=== PATIENT | female | born 1985 | race Caucasian/White ===

== ENCOUNTER 2019-06-09 08:32 | Inpatient (IN) | payer OTHER ==
[~2019-06-09] VITALS: Ht 165.1 cm; Wt 88.5 kg
[2019-06-09 08:35] VITALS: BP 167/88
[2019-06-09] MEDS ORDERED: NACL 0.9% 1,000 ML IV ONE ×2 (09:05→11:30)
[2019-06-09] MEDS ORDERED: KETOROLAC 30 MG/ML VIAL IVP ONE (09:25)
[2019-06-09] MEDS ORDERED: PROMETHAZINE 25 MG/ML VIAL IVP ONE (09:25)
[2019-06-09 10:08] LABS: HEMATOCRIT 29.6 % (36-48); HEMOGLOBIN 9.8 g/dL (12.0-16.0); MEAN CORPUSCULAR HEMOGLOBIN 30 pg (27-31); MEAN CORPUSCULAR HGB CONC 33 g/dL (33-37); PLATELET COUNT (AUTO) 319 K/uL (140-450); RED BLOOD CELL COUNT(AUTO) 3.32 MIL/uL (4.20-5.40); WHITE BLOOD COUNT (AUTO) 8.3 K/uL (4.8-10.8)
[2019-06-09 10:22] LABS: APPEARANCE,URINE CLEAR (CLEAR); BILIRUBIN,URINE 3+ (NEGATIVE); BLOOD, URINE 2+ (NEGATIVE); COLOR,URINE YELLOW (YELLOW); LEUKOCYTE ESTERASE ,URINE NEGATIVE (NEGATIVE); NITRITE, URINE NEGATIVE (NEGATIVE); UGLUCOSE TRACE (NEGATIVE)
[2019-06-09 10:25] LABS: ALBUMIN 2.7 g/dL (3.4-5.0); ANION GAP 15.3 (8-16); CARBON DIOXIDE 27.4 mmol/L (21-32); CREATININE 0.7 mg/dL (0.6-1.3); TOTAL BILIRUBIN 2.5 mg/dL (0.0-1.0)
[2019-06-09 10:27] LABS: POTASSIUM 2.7 mmol/L (3.5-5.1)
[2019-06-09 10:36] LABS: LYMPHOCYTES % (MANUAL) 12 % (20-46); MONOCYTES % (MANUAL) 2 % (5-12)
[2019-06-09 11:08] LABS: COARSE GRANULAR CASTS,URINE 0-10 /LPF (None Seen)
[2019-06-09] MEDS ORDERED: POTASSIUM CHLORIDE 20% 40 MEQ/15 ML UDC PO ONE (11:30)
[2019-06-09] MEDS ORDERED: KCL 20 MEQ/WATER INJ PREMIX 200 ML IV ONE (11:30)
[2019-06-09] MEDS ORDERED: diphenhydrAMINE 50 MG/ML VIAL IVP ONE (11:30)
[2019-06-09] MEDS ORDERED: METOCLOPRAMIDE 10 MG/2 ML INJ VIAL IVP ONE (11:30)
[2019-06-09] MEDS ORDERED: MORPHINE SULFATE 4 MG/ML SYR IVP ONE (12:50)
[2019-06-09] MEDS ORDERED: cefTRIAXone 1,000 MG VIAL ONE (13:57)
[2019-06-09] MEDS ORDERED: PROMETHAZINE 25 MG TAB PO PRN (14:55)
[2019-06-09 15:47] LABS: BARBITURATE, URINE NEG. ng/ml (NEG <=200); BENZODIAZEPINE, URINE NEG. ng/mL (NEG <=200); CANNABINOID, URINE POS. ng/mL (NEG <=50); COCAINE, URINE NEG. ng/mL (NEG <=300); OPIATE, URINE POS. ng/mL (NEG <=2000); PHENCYCLIDINE SCREEN,URINE NEG. ng/mL (NEG <=25)
[2019-06-09] MEDS ORDERED: ESCI20TA47 PO (15:58)
[2019-06-09] MEDS ORDERED: diphenhydrAMINE 50 MG/ML VIAL IVP PRN (16:15)
[2019-06-09] MEDS ORDERED: MAG SULF 2000 MG/WATER PREMIX 50 ML IV PRN (16:15)
[2019-06-09] MEDS ORDERED: MAGNESIUM OXIDE 400 MG TAB PO PRN (16:15)
[2019-06-09] MEDS ORDERED: ZOLPIDEM 5 MG TAB PO PRN (16:15)
[2019-06-09] MEDS ORDERED: guaiFENesin DM 200/20 MG-10 ML 10 ML UDC PO PRN (16:15)
[2019-06-09] MEDS: HYDROmorphone 1 MG/ML AMP IVP PRN ×2 (16:48→21:04)
[2019-06-09] MEDS: ONDANSETRON 4 MG/2 ML VIAL IVP PRN (19:49)
[2019-06-09] MEDS: IPRATROPIUM 0.02% 0.5 MG/2.5 ML NEBU INH PRN (19:58)
[2019-06-09] MEDS: ALBUTEROL 0.083% 2.5 MG/3 ML NEBU INH PRN (19:58)
[2019-06-10] VITALS: BP 108/69
[2019-06-10] MEDS: METOCLOPRAMIDE 10 MG/2 ML INJ VIAL IVP PRN ×3 (00:15→16:03)
[2019-06-10] MEDS: ALBUTEROL 0.083% 2.5 MG/3 ML NEBU INH PRN ×2 (00:47→19:39)
[2019-06-10] MEDS: IPRATROPIUM 0.02% 0.5 MG/2.5 ML NEBU INH PRN ×2 (00:47→19:38)
[2019-06-10] MEDS: HYDROmorphone 1 MG/ML AMP IVP PRN ×6 (01:13→20:55)
[2019-06-10] MEDS: ONDANSETRON 4 MG/2 ML VIAL IVP PRN ×3 (04:42→20:18)
[2019-06-10] MEDS ORDERED: POTASSIUM CHLORIDE 10 MEQ TABER PO PRN (07:00)
[2019-06-10 07:45] LABS: ALBUMIN 2.3 g/dL (3.4-5.0); ANION GAP 12.8 (8-16); CARBON DIOXIDE 28.9 mmol/L (21-32); CREATININE 0.7 mg/dL (0.6-1.3); POTASSIUM 3.7 mmol/L (3.5-5.1); TOTAL BILIRUBIN 2.1 mg/dL (0.0-1.0)
[2019-06-10 07:47] LABS: BASOPHILS % (AUTO) 0.2 % (0.0-2.0); EOSINOPHILS # (AUTO) 0.1 K/uL (0-0.4); EOSINOPHILS % (AUTO) 1.1 % (0.0-4.0); HEMATOCRIT 25.4 % (36-48); HEMOGLOBIN 8.3 g/dL (12.0-16.0); LYMPHOCYTES # (AUTO) 0.6 K/uL (2.5-16.5); MEAN CORPUSCULAR HEMOGLOBIN 29 pg (27-31); MEAN CORPUSCULAR HGB CONC 33 g/dL (33-37); MEAN CORPUSCULAR VOLUME 89.9 fL (80-94); MONOCYTES # (AUTO) 0.2 K/uL (0.8-1.0); MONOCYTES % (AUTO) 2.3 % (1.7-9.3); NEUTROPHILS # (AUTO) 6.9 K/uL (1.8-7.7); NEUTROPHILS % (AUTO) 88.4 % (42.2-75.2); PLATELET COUNT (AUTO) 316 K/uL (140-450); RED BLOOD CELL COUNT(AUTO) 2.83 MIL/uL (4.20-5.40); WHITE BLOOD COUNT (AUTO) 7.8 K/uL (4.8-10.8)
[2019-06-10 08:00] VITALS: BP 135/73
[2019-06-10] MEDS ORDERED: POTASSIUM CHLORIDE 40 MEQ, LIDOCAINE 1% 25 MG in NACL 0.9% 250 ML IV PRN (08:00)
[2019-06-10] MEDS ORDERED: THIAMINE 100 MG TAB PO SCH (11:16)
[2019-06-10 16:00] VITALS: BP 147/80
[2019-06-10] MEDS: LORazepam 2 MG/ML VIAL IVP PRN (16:54)
[2019-06-10] MEDS ORDERED: ACETAMINOPHEN 325 MG TAB PO PRN (18:40)
[2019-06-10] MEDS ORDERED: ACETAMINOPHEN 325 MG TAB ONE (19:04)
[2019-06-11] VITALS: BP 148/83
[2019-06-11] MEDS: HYDROmorphone 1 MG/ML AMP IVP PRN ×6 (01:06→23:39)
[2019-06-11] MEDS: LORazepam 2 MG/ML VIAL IVP PRN ×2 (05:49→21:11)
[2019-06-11 08:00] VITALS: BP 131/69
[2019-06-11] MEDS: THIAMINE 100 MG TAB PO SCH (09:37)
[2019-06-11] MEDS: ONDANSETRON 4 MG/2 ML VIAL IVP PRN ×2 (12:12→19:53)
[2019-06-11] MEDS: ALBUTEROL 0.083% 2.5 MG/3 ML NEBU INH PRN (12:18)
[2019-06-11] MEDS: IPRATROPIUM 0.02% 0.5 MG/2.5 ML NEBU INH PRN (12:19)
[2019-06-11] MEDS: METOCLOPRAMIDE 10 MG/2 ML INJ VIAL IVP PRN ×2 (15:48→23:31)
[2019-06-11 16:00] VITALS: BP 136/76
[2019-06-12] VITALS: BP 126/62
[2019-06-12] MEDS: LORazepam 2 MG/ML VIAL IVP PRN (03:09)
[2019-06-12] MEDS: ONDANSETRON 4 MG/2 ML VIAL IVP PRN (03:10)
[2019-06-12] MEDS: HYDROmorphone 1 MG/ML AMP IVP PRN ×3 (05:11→15:18)
[2019-06-12 06:55] LABS: BASOPHILS % (AUTO) 0.3 % (0.0-2.0); EOSINOPHILS % (AUTO) 0.5 % (0.0-4.0); HEMATOCRIT 26.2 % (36-48); HEMOGLOBIN 8.8 g/dL (12.0-16.0); LYMPHOCYTES # (AUTO) 0.8 K/uL (2.5-16.5); LYMPHOCYTES % (AUTO) 9.4 % (20.5-51.1); MEAN CORPUSCULAR HEMOGLOBIN 29 pg (27-31); MEAN CORPUSCULAR HGB CONC 33 g/dL (33-37); MEAN CORPUSCULAR VOLUME 87.2 fL (80-94); MONOCYTES # (AUTO) 0.2 K/uL (0.8-1.0); MONOCYTES % (AUTO) 2.8 % (1.7-9.3); NEUTROPHILS # (AUTO) 7.4 K/uL (1.8-7.7); PLATELET COUNT (AUTO) 372 K/uL (140-450); RED BLOOD CELL COUNT(AUTO) 3.01 MIL/uL (4.20-5.40); RED CELL DISTRIBUTION WIDTH 16.7 % (11.6-13.7); WHITE BLOOD COUNT (AUTO) 8.5 K/uL (4.8-10.8)
[2019-06-12 07:58] LABS: ANION GAP 16.8 (8-16); CARBON DIOXIDE 28.3 mmol/L (21-32); CREATININE 0.8 mg/dL (0.6-1.3); POTASSIUM 3.1 mmol/L (3.5-5.1)
[2019-06-12 07:59] LABS: ALBUMIN 2.1 g/dL (3.4-5.0); TOTAL BILIRUBIN 2.1 mg/dL (0.0-1.0)
[2019-06-12 08:00] VITALS: BP 127/77
[2019-06-12] MEDS: THIAMINE 100 MG TAB PO SCH (08:38)
[2019-06-12] MEDS ORDERED: POTASSIUM CHLORIDE 10 MEQ TABER PO SCH (12:30)
[2019-06-12] MEDS ORDERED: LEVO750T2 PO (12:51)
[2019-06-12 16:00] VITALS: BP 129/72
[2019-06-12] MEDS ORDERED: HYDR-5122 PO ×2 (17:30→17:32)
== END 2019-06-12 18:15 | disposition home or self-care (01) | DRG 280 ==
LOC: MED 08:32 → MMU 15:00
PROVIDERS: ADMIT Internal Medicine Pulmonary Disease; ATTEND Internal Medicine Pulmonary Disease
DX: K70.9 Alcoholic liver disease, unspecified (principal); J69.0 Pneumonitis due to inhalation of food and vomit; E87.6 Hypokalemia; F12.90 Cannabis use, unspecified, uncomplicated; R09.02 Hypoxemia; T40.7X1A Poisoning by cannabis (derivatives), accidental (unintentional), initial encounter; Z90.49 Acquired absence of other specified parts of digestive tract; Y92.89 Other specified places as the place of occurrence of the external cause; E44.0 Moderate protein-calorie malnutrition
CPT/HCPCS: 36415; 71045; 71275; 76705; 80053; 80305; 81001; 81025; 82150; 83690; 84484; 85025; 85379; 87040; 87070; 87081; 87086; 87205; 94640; 96361; 96365; 96375; 99285; J0696; J1170; J1200; J1885; J2060; J2270; J2405; J2550; J2765; J3480; J7030; J7060; J7613; J7644; Q0092; Q0169; Q9967

== ENCOUNTER 2019-06-14 12:07 | Emergency (ER) | payer OTHER ==
[~2019-06-14] VITALS: Ht 165.1 cm; Wt 85.7 kg
[~2019-06-14 12:07] MED LIST: ESCI20TA47 PO; HYDR-5122 PO; LEVO750T2 PO
[2019-06-14 12:24] VITALS: BP 126/77
--- NOTE | 2019-06-14 14:21 | NUR ---
PT AMBULATED TO BED
--- NOTE | 2019-06-14 14:53 | NUR ---
PT C/O EXCESSIVE NAUSEA & VOMITING X8 DAYS. PT WAS SEEN WEDNESDAY & ADMITTED FOR PNEUMONIA. C/O BURNING MID ABD PAIN . STATES SHE WAS SUPPOSED TO HAVE BIOPSY OF UTERUS DENIED BIOPSY PT STATES SHE WAS AFRAID TO ASPIRATE ON VOMIT DURING PROCEDURE. PT STATES SHE HAS BEEN ON HER PERIOD SINCE 01/13/19, CONSTANT. PT SITTING IN BED, CALM, VSS. MOTHER AT BEDSIDE. MEDHX: HEART MURMUR, GALL BLADDER REMOVAL ALLERGIES: DENIES
[2019-06-14] MEDS ORDERED: NACL 0.9% 1,000 ML IV ONE (16:15)
[2019-06-14 16:35] LABS: BASOPHILS % (AUTO) 0.7 % (0.0-2.0); EOSINOPHILS # (AUTO) 0.1 K/uL (0-0.4); EOSINOPHILS % (AUTO) 1.7 % (0.0-4.0); HEMATOCRIT 29.5 % (36-48); HEMOGLOBIN 9.8 g/dL (12.0-16.0); LYMPHOCYTES # (AUTO) 0.8 K/uL (2.5-16.5); LYMPHOCYTES % (AUTO) 18.1 % (20.5-51.1); MEAN CORPUSCULAR HEMOGLOBIN 29 pg (27-31); MEAN CORPUSCULAR HGB CONC 33 g/dL (33-37); MEAN CORPUSCULAR VOLUME 87.3 fL (80-94); MONOCYTES # (AUTO) 0.1 K/uL (0.8-1.0); MONOCYTES % (AUTO) 2.7 % (1.7-9.3); NEUTROPHILS # (AUTO) 3.5 K/uL (1.8-7.7); NEUTROPHILS % (AUTO) 76.8 % (42.2-75.2); PLATELET COUNT (AUTO) 524 K/uL (140-450); RED BLOOD CELL COUNT(AUTO) 3.39 MIL/uL (4.20-5.40); RED CELL DISTRIBUTION WIDTH 17.7 % (11.6-13.7); WHITE BLOOD COUNT (AUTO) 4.5 K/uL (4.8-10.8)
--- NOTE | 2019-06-14 16:38 | NUR ---
PT SITTING IN BED, VSS. PT C/O PAIN 05/13. MOTHER AT BEDSIDE
[2019-06-14 16:46] LABS: APPEARANCE,URINE CLEAR (CLEAR); BILIRUBIN,URINE 2+ (NEGATIVE); BLOOD, URINE 3+ (NEGATIVE); LEUKOCYTE ESTERASE ,URINE NEGATIVE (NEGATIVE); NITRITE, URINE NEGATIVE (NEGATIVE); UGLUCOSE TRACE (NEGATIVE)
[2019-06-14 17:03] LABS: COLOR,URINE AMBER (YELLOW)
[2019-06-14 17:07] LABS: RBC,URINE 0-5 /HPF (0-5); WBC,URINE 0-5 /HPF (0-5)
[2019-06-14 17:54] LABS: ANION GAP 18.1 (8-16); CARBON DIOXIDE 28.5 mmol/L (21-32); CREATININE 0.7 mg/dL (0.6-1.3); POTASSIUM 3.6 mmol/L (3.5-5.1); TOTAL BILIRUBIN 0.9 mg/dL (0.0-1.0)
[2019-06-14 17:55] LABS: ALBUMIN 2.2 g/dL (3.4-5.0)
--- NOTE | 2019-06-14 18:24 | NUR ---
PT IN BED WITH MOTHER AT BEDSIDE. C/O PAIN. MD NOTIFIED OF PAIN.
[2019-06-14] MEDS ORDERED: KETOROLAC 30 MG/ML VIAL IVP ONE (18:25)
[2019-06-14] MEDS ORDERED: DICYCLOMINE HCL LIQUID 10 MG/5 ML UDC PO ONE (18:25)
--- NOTE | 2019-06-14 19:56 | NUR ---
Patient discharged with v/s stable. Written and verbal after care instructions given and explained. Patient alert, oriented and verbalized understanding of instructions. Ambulatory with steady gait. All questions addressed prior to discharge. ID band removed. Patient advised to follow up with PMD. Rx of PHENERGAN AND BENTYL WAS given. Patient educated on indication of medication including possible reaction and side effects. Opportunity to ask questions provided and answered.
[2019-06-14 20:00] VITALS: BP 137/77
--- NOTE | 2019-06-15 08:47 | NUR ---
Late entry. Confirmed with RN that 0.9 NS IV 1000ml completed at 1730
== END 2019-06-14 19:56 | disposition home or self-care (01) ==
LOC: MED 12:07
DX: K85.90 Acute pancreatitis without necrosis or infection, unspecified (principal); R11.10 Vomiting, unspecified; Z79.891 Long term (current) use of opiate analgesic; Z79.899 Other long term (current) drug therapy; Z79.2 Long term (current) use of antibiotics
CPT/HCPCS: 36415; 80053; 81001; 81025; 83690; 85025; 96361; 96374; 99283; J1885; J7030

== ENCOUNTER 2019-07-25 08:57 | Emergency (ER) | payer OTHER ==
[~2019-07-25] VITALS: Ht 165.1 cm; Wt 85.4 kg
[2019-07-25 08:59] VITALS: BP 137/77
--- NOTE | 2019-07-25 09:09 | NUR ---
PATIENT AMBULATED TO BED 3.
[2019-07-25] MEDS ORDERED: NACL 0.9% 1,000 ML IV SCH (09:23)
--- NOTE | 2019-07-25 09:23 | NUR ---
C/O LUQ ABDOMINAL PAIN RADIATING TO LEFT UPPER BACK ,N/V X 3 DAYS. MED HX: 2 C SECTIONS, GALL BLADDER REMOVAL, HEART MURMUR, PANCREATITIS, ALCOHOLIC LIVER DISEASE SKIN IS PINK/WARM/DRY; AAOX4 WITH EVEN AND STEADY GAIT; LUNGS CLEAR BL; HR EVEN AND REGULAR; PT DENIES ANY FEVER, CP, SOB, OR COUGH AT THIS TIME; PATIENT STATES PAIN OF 9/10 AT THIS TIME; VSS; PATIENT POSITIONED FOR COMFORT; HOB ELEVATED; BEDRAILS UP X2; BED DOWN. ER MD MADE AWARE OF PT STATUS.
[2019-07-25] MEDS ORDERED: FAMOTIDINE 20 MG/2 ML VIAL IVP ONE (09:25)
[2019-07-25] MEDS ORDERED: KETOROLAC 15 MG/ML VIAL IVP ONE (09:25)
[2019-07-25] MEDS ORDERED: ONDANSETRON 4 MG/2 ML VIAL IVP ONE (09:25)
[2019-07-25] MEDS ORDERED: METOCLOPRAMIDE 10 MG/2 ML INJ VIAL IVP ONE (09:40)
[2019-07-25 09:52] LABS: BASOPHILS % (AUTO) 0.4 % (0.0-2.0); EOSINOPHILS % (AUTO) 0.2 % (0.0-4.0); HEMATOCRIT 33.8 % (36-48); HEMOGLOBIN 10.9 g/dL (12.0-16.0); LYMPHOCYTES # (AUTO) 1.1 K/uL (2.5-16.5); MEAN CORPUSCULAR HEMOGLOBIN 27 pg (27-31); MEAN CORPUSCULAR HGB CONC 32 g/dL (33-37); MEAN CORPUSCULAR VOLUME 84.1 fL (80-94); MONOCYTES # (AUTO) 0.2 K/uL (0.8-1.0); MONOCYTES % (AUTO) 3.2 % (1.7-9.3); NEUTROPHILS # (AUTO) 6.2 K/uL (1.8-7.7); NEUTROPHILS % (AUTO) 81.2 % (42.2-75.2); PLATELET COUNT (AUTO) 351 K/uL (140-450); RED BLOOD CELL COUNT(AUTO) 4.02 MIL/uL (4.20-5.40); RED CELL DISTRIBUTION WIDTH 16.7 % (11.6-13.7); WHITE BLOOD COUNT (AUTO) 7.7 K/uL (4.8-10.8)
--- NOTE | 2019-07-25 09:53 | NUR ---
PT STATED NO MORE NAUSEA . PAIN RELIEVED BUT BACK STILL HURTS, WILL CONTINUE TO CHECK PT.
[2019-07-25 10:08] LABS: CREATININE 0.8 mg/dL (0.6-1.3); POTASSIUM 3.4 mmol/L (3.5-5.1); TOTAL BILIRUBIN 1.2 mg/dL (0.0-1.0)
[2019-07-25 10:13] LABS: CARBON DIOXIDE 23.6 mmol/L (21-32)
[2019-07-25 10:14] LABS: ANION GAP 18.8 (8-16)
[2019-07-25 11:02] VITALS: BP 128/75
--- NOTE | 2019-07-25 11:03 | NUR ---
Patient discharged with v/s stable. Written and verbal after care instructions given and explained. Patient alert, oriented and verbalized understanding of instructions. Ambulatory with steady gait. All questions addressed prior to discharge. ID band removed. Patient advised to follow up with PMD. Rx of reglan and omeprazole given. Patient educated on indication of medication including possible reaction and side effects. Opportunity to ask questions provided and answered.
== END 2019-07-25 11:03 | disposition home or self-care (01) ==
LOC: MED 08:57
DX: K29.70 Gastritis, unspecified, without bleeding (principal); R11.2 Nausea with vomiting, unspecified; Z90.49 Acquired absence of other specified parts of digestive tract; Z98.890 Other specified postprocedural states; Z79.899 Other long term (current) drug therapy; Z88.8 Allergy status to other drugs, medicaments and biological substances
CPT/HCPCS: 36415; 80053; 81002; 81025; 83690; 85025; 96361; 96374; 96375; 99283; J1885; J2765; J3490; J7030; J2405

== ENCOUNTER 2020-05-26 09:47 | Observation (INO) | payer OTHER ==
[~2020-05-26] VITALS: Ht 167.6 cm; Wt 90.7 kg
[2020-05-26 09:54] VITALS: BP 150/101
--- NOTE | 2020-05-26 10:30 | NUR ---
heavy menses x february--passing large clots as well which cause labor type pain c/o fatigue, dizziness, sob, generalized weakness 15 sanitary napkin/day +
[2020-05-26 10:42] LABS: BASOPHILS % (AUTO) 0.4 % (0.0-2.0); EOSINOPHILS % (AUTO) 0.3 % (0.0-4.0); HEMATOCRIT 20.9 % (36-48); LYMPHOCYTES # (AUTO) 1.4 K/uL (2.5-16.5); MEAN CORPUSCULAR HEMOGLOBIN 26 pg (27-31); MEAN CORPUSCULAR HGB CONC 32 g/dL (33-37); MONOCYTES # (AUTO) 0.4 K/uL (0.8-1.0); MONOCYTES % (AUTO) 5.9 % (1.7-9.3); NEUTROPHILS # (AUTO) 5.3 K/uL (1.8-7.7); NEUTROPHILS % (AUTO) 73.4 % (42.2-75.2); PLATELET COUNT (AUTO) 276 K/uL (140-450); RED BLOOD CELL COUNT(AUTO) 2.58 MIL/uL (4.20-5.40); RED CELL DISTRIBUTION WIDTH 15.6 % (11.6-13.7); WHITE BLOOD COUNT (AUTO) 7.2 K/uL (4.8-10.8)
[2020-05-26 10:44] LABS: BILIRUBIN,URINE 2+ (NEGATIVE); BLOOD, URINE 2+ (NEGATIVE); COLOR,URINE YELLOW (YELLOW); LEUKOCYTE ESTERASE ,URINE NEGATIVE (NEGATIVE); NITRITE, URINE NEGATIVE (NEGATIVE); UGLUCOSE NEGATIVE (NEGATIVE)
[2020-05-26 11:00] LABS: PROTHROMBIN TIME 10.4 secs (10.8-13.4)
[2020-05-26 11:03] LABS: ALBUMIN 3.9 g/dL (3.4-5.0); ANION GAP 20.3 (8-16); CARBON DIOXIDE 22.5 mmol/L (21-32); HEMOGLOBIN 6.6 g/dL (12.0-16.0); TOTAL BILIRUBIN 0.8 mg/dL (0.0-1.0)
[2020-05-26 11:09] LABS: POTASSIUM 2.8 mmol/L (3.5-5.1)
[2020-05-26 11:10] LABS: APPEARANCE,URINE SLIGHTLY HAZY (CLEAR)
[2020-05-26 11:12] LABS: WBC,URINE 0-5 /HPF (0-5)
[2020-05-26] MEDS ORDERED: LORazepam 2 MG/ML VIAL IVP ONE (11:20)
[2020-05-26] MEDS ORDERED: POTASSIUM CHLORIDE 10 MEQ TABER PO ONE (11:35)
[2020-05-26] MEDS: NACL 0.9% 1,000 ML IV SCH ×2 (11:51→21:32)
[2020-05-26] MEDS ORDERED: ONDANSETRON 4 MG/2 ML VIAL IVP PRN (11:55)
--- NOTE | 2020-05-26 12:00 | NUR ---
RECEIVED REPORT FROM ER NURSE. ADMITTED 35 Y/O FEMALE WITH CC OF VAGINAL BLEEDING AND ADMITTING DX OF ANEMIA. PT IS AOX4, VERBAL, AMBULATORY, CONTINENT, NO C/O PAIN, NO SOB, ON ROOM AIR, V/S WNL. IV SITE ON LAC 20G RUNNING NS AT 80CC/HR. SKIN IS INTACT. CALL LIGHT WITHIN REACH. SAFETY PRECAUTIONS IN PLACE. WILL CONTINUE TO MONITOR
--- NOTE | 2020-05-26 12:28 | NUR ---
Pt transferred to Med/Surg via gurney to room 104-b report given to Galen HERNANDEZ
[2020-05-26] MEDS ORDERED: LORazepam 2 MG/ML VIAL IVP SCH (15:00)
--- NOTE | 2020-05-26 15:50 | NUR ---
BLOOD TRANSFUSION 1 BAG PRBC STARTED. NO ADVERSE REACTIONS NOTED. V/S MONITORING PROTOCOL STARTED
[2020-05-26 16:02] VITALS: BP 129/74
--- NOTE | 2020-05-26 17:25 | NUR ---
FINISHED BLOOD TRANSFUSION. NO ADVERSE REACTIONS NOTED.
--- NOTE | 2020-05-26 18:40 | NUR ---
STARTED 2ND BAG OF PRBC. NO ADVERSE REACTIONS NOTED. V/S MONITORING PROTOCOL STARTED
--- NOTE | 2020-05-26 19:30 | NUR ---
RECEIVED BEDSIDE REPORT FROM DAY SHIFT NURSE. PATIENT IS AWAKE, ALERT, AND COOPERATIVE. RESPIRATION EVEN UNLABORED ON ROOM AIR. NO DISTRESS NOTED. SKIN IS WARM AND DRY. IV PATENT AND INTACT. PATIENT IS RECEIVING BLOOD TRANSFUSION AT THIS MOMENT. NO BLOOD TRANSFUSION REACTION NOTED. PLAN OF CARE WAS DISCUSSED. ALL SAFETY MEASURES IN PLACE. BED IS AT LOW POSITION. CALL LIGHT WITHIN REACH. WILL CONTINUE TO MONITOR.
[2020-05-26 20:00] VITALS: BP 115/66
--- NOTE | 2020-05-26 20:40 | NUR ---
BLOOD TRANSFUSION DONE. NO ADVERSE REACTION NOTED. VITALS WERE STABLE. WILL CONTINUE TO MONITOR.
[2020-05-26] MEDS: MEGESTROL 40 MG TAB PO SCH (21:06)
--- NOTE | 2020-05-26 21:06 | NUR ---
ALL SCHEDULED MEDS WERE GIVEN PER ORDER. NO ASE NOTED. WILL CONTINUE TO MONITOR.
[2020-05-26] MEDS ORDERED: traZODone 50 MG TAB PO PRN (21:25)
--- NOTE | 2020-05-26 22:06 | NUR ---
PATIENT COMPLAINED OF UNABLE TO FALL ASLEEP. PRN SLEEPING AID GIVEN PER ORDER. WILL CONTINUE TO MONITOR.
[2020-05-27] VITALS: BP 120/51
--- NOTE | 2020-05-27 02:46 | NUR ---
CHECKED PATIENT. PATIENT SLEEPING RESPIRATION EVEN UNLABORED ON ROOM AIR. NO DISTRESS NOTED. WILL CONTINUE TO MONITOR.
--- NOTE | 2020-05-27 03:33 | NUR ---
ENDORSED PATIENT TO JOSEMANUEL FOR CONTINUITY OF CARE. PATIENT IN STABLE CONDITION
--- NOTE | 2020-05-27 03:35 | NUR ---
RECEIVED PT SLEEPING, EASILY AROUSABLE, DENIES ANY PAIN, PT STATED ONLY SCANTY BLEEDING/SPOTTING AT THIS TIME, IV SITE ON THE LT AC POSITIONAL, INSTRUCTED TO KEEP LEFT ARM STRAIGHT, PILLOW PROVIDED UNDERNEATH THE LEFT ARM TO KEEP ARM STRAIGHT, SAFETY MEASURES IN PLACE, CALL LIGHT WITHIN REACH.
[2020-05-27 04:15] VITALS: BP 123/58
--- NOTE | 2020-05-27 05:10 | NUR ---
PT AMBULATED TO BR WITH STEADY GAIT, VOIDED FREELY, MONITORED CLOSELY.
--- NOTE | 2020-05-27 06:10 | NUR ---
SEEN PT SLEEPING, OPEN EYES TO NAME, NO DISTRESS NOTED, IVF INFUSING WELL, MONITORED CLOSELY.
[2020-05-27 07:06] LABS: BASOPHILS % (AUTO) 0.6 % (0.0-2.0); EOSINOPHILS # (AUTO) 0.1 K/uL (0-0.4); EOSINOPHILS % (AUTO) 1.6 % (0.0-4.0); HEMATOCRIT 24.2 % (36-48); LYMPHOCYTES # (AUTO) 1.6 K/uL (2.5-16.5); LYMPHOCYTES % (AUTO) 29.7 % (20.5-51.1); MEAN CORPUSCULAR HEMOGLOBIN 27 pg (27-31); MEAN CORPUSCULAR HGB CONC 33 g/dL (33-37); MEAN CORPUSCULAR VOLUME 82.3 fL (80-94); MONOCYTES # (AUTO) 0.4 K/uL (0.8-1.0); MONOCYTES % (AUTO) 6.8 % (1.7-9.3); NEUTROPHILS # (AUTO) 3.2 K/uL (1.8-7.7); NEUTROPHILS % (AUTO) 61.3 % (42.2-75.2); PLATELET COUNT (AUTO) 224 K/uL (140-450); RED BLOOD CELL COUNT(AUTO) 2.94 MIL/uL (4.20-5.40); RED CELL DISTRIBUTION WIDTH 15.6 % (11.6-13.7); WHITE BLOOD COUNT (AUTO) 5.3 K/uL (4.8-10.8)
--- NOTE | 2020-05-27 07:40 | NUR ---
RECEIVED REPORT FROM NIGHT NURSE. RECEIVED 35 Y/O FEMALE WITH CC OF VAGINAL BLEEDING AND ADMITTING DX OF ANEMIA. PT IS AOX4, VERBAL, AMBULATORY, CONTINENT, NO C/O PAIN, NO SOB, ON ROOM AIR, V/S WNL. IV SITE ON LAC 20G RUNNING NS AT 80CC/HR. SKIN IS INTACT. CALL LIGHT WITHIN REACH. SAFETY PRECAUTIONS IN PLACE. WILL CONTINUE TO MONITOR
--- NOTE | 2020-05-27 07:40 | NUR ---
PT AWAKE, NO SIGNS OF DISTRESS, REPORT GIVEN TO RN BRITNEY FOR CONTINUITY OF CARE.
[2020-05-27 07:45] LABS: ALBUMIN 3.4 g/dL (3.4-5.0); ANION GAP 13.6 (8-16); CARBON DIOXIDE 26.2 mmol/L (21-32); CREATININE 0.9 mg/dL (0.6-1.3); TOTAL BILIRUBIN 1.3 mg/dL (0.0-1.0)
[2020-05-27 08:00] VITALS: BP 122/65
[2020-05-27] MEDS: MEGESTROL 40 MG TAB PO SCH (08:16)
--- NOTE | 2020-05-27 08:30 | NUR ---
DUE MORNING MEDS GIVEN. TOLERATED PO MEDS WELL
[2020-05-27 09:04] LABS: POTASSIUM 2.8 mmol/L (3.5-5.1)
--- NOTE | 2020-05-27 09:05 | NUR ---
POTASSIUM 2.8. CALLED DR. FAIR, HE WILL COME AND SEE PT
--- NOTE | 2020-05-27 09:12 | NUR ---
PATIENT HAS BEEN SCREENED AND CATEGORIZED LOW NUTRITION RISK. PATIENT WILL BE SEEN WITHIN 7 DAYS OF ADMISSION. 06/01/[address]
[2020-05-27] MEDS ORDERED: POTASSIUM CHLORIDE 10 MEQ TABER PO SCH (09:39)
[2020-05-27] MEDS ORDERED: POTASSIUM CHL 40 MEQ/ D5-1/2NS 1,000 ML IV SCH (09:40)
--- NOTE | 2020-05-27 09:50 | NUR ---
DR FAIR CAME AND TALKED TO PT
[2020-05-27] MEDS ORDERED: KCL 20 MEQ/WATER INJ PREMIX 100 ML IV SCH (10:30)
--- NOTE | 2020-05-27 11:45 | NUR ---
WITH C/O BURNING AT IV SITE. HELD K RIDER AND FLUSHED IV SITE. NOTIFIED DR. FAIR. ORDERED TO CHANGE TO K RIDER WITH LIDOCAINE
--- NOTE | 2020-05-27 11:50 | NUR ---
PT STARTED CRYING AND PT STATED THAT SHE IS HAVING A PANIC ATTACK.. PT ALSO STATED THAT NO ONE HAS COME IN AND SEEN HER AND SHE DOESN'T KNOW WHAT'S GOING ON. REORIENTED PT, DR. FAIR HAS SEEN PT EARLIER THIS MORNING AND EXPLAINED TO HER THE PLAN OF CARE. PT STILL CRYING AND INSISTS NO ONE HAS SEEN HER
[2020-05-27 12:00] VITALS: BP 135/72
[2020-05-27] MEDS: NACL 0.9% 1,000 ML IV SCH (12:12)
[2020-05-27] MEDS ORDERED: POTASSIUM CHLORIDE 40 MEQ, LIDOCAINE MPF 1% 25 MG in NACL 0.9% 250 ML IV SCH (13:00)
--- NOTE | 2020-05-27 13:00 | NUR ---
Bhavin HENAO WITH LIDOCAINE STARTED
[2020-05-27 16:00] VITALS: BP 114/62
--- NOTE | 2020-05-27 16:00 | NUR ---
PT CONSTANTLY CALLING ABOUT BEEPING IV PUMP, IV PUMP WAS FIXED AND EXPLAINED TO THE PT THAT IT WAS CAUSED BY THE TUBE KINKING WHEN SHE BENDS HER ELBOW AND INSTRUCTED PT TO TRY TO STRAIGHTEN ELBOW, PT VERBALIZED UNDERSTANDING
--- NOTE | 2020-05-27 17:30 | NUR ---
POTASSIUM LEVEL AT 4.3. DR. FAIR NOTIFIED AND ORDERED TO DISCHARGE PT HOME
--- NOTE | 2020-05-27 17:45 | NUR ---
PT WAS LAST SEEN BY RN AT 172 FOR BEEPING IV PUMP, IV PUMP WAS FIXED AND EXPLAINED TO THE PT THAT IT WAS CAUSED BY THE TUBE KINKING WHEN SHE BENDS HER ELBOW AND INSTRUCTED PT TO TRY TO STRAIGHTEN ELBOW, PT VERBALIZED UNDERSTANDING AT THAT TIME. AT 1740, PT CALLED ABOUT BEEPING IV PUMP. WHEN LIGHTING ADVISER ARRIVED IN ROOM, PT GOT AGITATED AND STARTED SCREAMING. PT STATED THAT THE IV PUMP HAS BEEN BEEPING FOR 45 MINUTES. ALSO STATED THAT NO ONE HAS BEEN ATTENDING TO HER ALL DAY AND NO ONE HAS EXPLAINED ANYTHING TO HER. AT 174, PT WALKED OUT OF THE HOSPITAL INSISTING TO GO HOME AND REFUSED TO SIGN DISCHARGE PAPERS. IV AND TELE MONITOR WAS TAKEN OUT BEFORE PT WALKED OUT.
== END 2020-05-27 17:50 | disposition home or self-care (01) ==
LOC: MED 09:47 → MTU 11:56
PROVIDERS: ADMIT Internal Medicine; ATTEND Internal Medicine
DX: D62 Acute posthemorrhagic anemia (principal); E87.6 Hypokalemia; R55 Syncope and collapse; N92.0 Excessive and frequent menstruation with regular cycle; Z86.79 Personal history of other diseases of the circulatory system; Z98.61 Coronary angioplasty status; Z88.8 Allergy status to other drugs, medicaments and biological substances
CPT/HCPCS: 36415; 36430; 80053; 81001; 83735; 84132; 85025; 85610; 85730; 86886; 86900; 86901; 86920; 87081; 93005; 93307; 96361; 96365; 96366; 96375; 96376; 99284; G0378; J2001; J2060; J3480; J7030; P9016